=== PATIENT | male | born 1950 | race Caucasian/White ===

== ENCOUNTER 2020-09-04 15:22 | Outpatient (REF) | payer SELFPAY | END 2020-09-04 15:23 | disposition home or self-care (01) | LOC: HO.HAP 15:22 | PROVIDERS: Visit Provider Internal Medicine | DX: Z46.1 Encounter for fitting and adjustment of hearing aid (principal) | CPT/HCPCS: 92700; V5266 ==

== ENCOUNTER 2020-11-21 06:02 | Outpatient (REF) | payer BC, SELFPAY | END 2020-11-21 06:03 | disposition home or self-care (01) | LOC: HO.LAB 06:02 | PROVIDERS: Visit Provider Internal Medicine | DX: R97.20 Elevated prostate specific antigen [PSA] (principal) | CPT/HCPCS: 36415; 84153 ==

== ENCOUNTER 2020-12-07 13:45 | Outpatient (REF) | payer SELFPAY ==
--- NOTE | 2020-12-07 14:22 | MHC.AU.P13 ---
Hearing Instrument Follow-Up- Binaural Date of Visit: 12/07/20 Right Ear: Mission Worker: [employer]ak Model: ActionPlanner Q50-M13 Serial Number: [id number] Repair Warranty: 2017 Loss and Damage Warranty: 2017 Battery Size: 13 Color: SILVER CHRISTENSEN Tubing: #2 SLIM TUBE Type of Dome: SMALL POWER Left Ear: Mission Worker: Phonak Model: ActionPlanner Q50-M13 Serial Number: [id number] RepairWarranty: 2017 Loss and Damage Warranty: 2017 Battery Size: 13 Color: SILVER CHRISTENSEN Tubing: #2 SLIM TUBE Type of Dome: MEDIUM POWER Follow-Up Summary: Right hearing aid dropped off not working. Cleaned and replaced #2 right slim tube, small power dome, and microphone cover - now amplifying clearly. Signature: Provider: NOHEMI Castro-
== END 2020-12-07 13:46 | disposition home or self-care (01) ==
LOC: HO.HAP 13:45
PROVIDERS: Visit Provider Internal Medicine
DX: Z13.89 Encounter for screening for other disorder (principal)

== ENCOUNTER 2020-12-12 15:25 | Outpatient (REF) | payer SELFPAY | END 2020-12-12 15:26 | disposition home or self-care (01) | LOC: HO.HAP 15:25 | PROVIDERS: Visit Provider Internal Medicine | DX: Z46.1 Encounter for fitting and adjustment of hearing aid (principal) | CPT/HCPCS: 99499 ==

== ENCOUNTER 2021-09-25 06:04 | Outpatient (REF) | payer BC, SELFPAY ==
[2021-09-25 06:11] LABS: MANUAL DIFF FLAG NO
[2021-09-25 07:29] LABS: Basophils Absolute Auto 0.1 X10*3/uL (0.0-0.2); Basophils Percent Auto 1.4 % (0-2); Eosinophils Absolute Auto 0.3 X10*3/uL (0.0-0.4); Eosinophils Percent Auto 6.7 % (0-4); Hematocrit 44.6 % (42.0-52.0); Hemoglobin 14.8 g/dl (14.0-18.0); Lymphocytes Absolute Auto 1.6 X10*3/uL (1.2-4.9); Lymphocytes Percent Auto 31.5 % (20-40); Mean Corpuscular HGB Conc 33.2 g/dl (31.0-36.0); Mean Corpuscular Hemoglobin 30.6 pg (27.0-33.0); Mean Corpuscular Volume 92.1 fL (80.0-98.0); Mean Platelet Volume 10.8 fL (9.4-12.4); Monocytes Absolute Auto 0.5 X10*3/uL (0.1-1.2); Monocytes Percent Auto 10.3 % (2-11); Neutrophils Absolute Auto 2.5 x10*3/uL (2.0-8.3); Neutrophils Percent Auto 50.1 % (45-73); Platelet Count 231 X10*3/uL (160-400); Red Blood Count 4.84 X10*6/uL (4.60-5.80)
[2021-09-25 08:35] LABS: Alanine Aminotransferase 21 U/L (0-40); Albumin Level 4.2 g/dL (3.5-5.0); Alkaline Phosphatase 117 U/L (39-117); Anion Gap 13 (12-20); Aspartate Amino Transferase 20 U/L (5-37); Bilirubin Total 1.3 mg/dL (0.0-1.0); Blood Urea Nitrogen 16 mg/dL (9-16); Calcium 9.5 mg/dL (8.4-10.2); Carbon Dioxide 29 mmol/L (22-29); Chloride 105 mmol/L (96-108); Cholesterol 145 mg/dL; Estimated Glomerular Filt Rate > 60; Glucose Fasting 90 mg/dL (60-99); HDL Cholesterol 40 mg/dL; LDL Cholesterol Calculated 90 mg/dl; Potassium 4.6 mmol/L (3.3-5.1); Sodium 142 mmol/L (135-145); Total Protein 7.2 g/dL (6.5-8.0); Triglycerides 75 mg/dL
[2021-09-25 09:05] LABS: Appearance Urine HAZY; Color Urine YELLOW; Glucose Urine UA NEG (NEG); Leukocyte Esterase Urine TRACE (NEG); Nitrite Urine POS (NEG); Specific Gravity - Urine 1.025 (1.005-1.025); Urine Blood TRACE (NEG); Urine Ketones 5 MG/DL (NEG); Urine Protein NEG (NEG-TRACE)
[2021-09-25 09:17] LABS: Bacteria Urine 4+ /LPF; RBC Urine 0-2 /HPF (0); Squamous Epithelial Cell Urine 1+ /LPF
== END 2021-09-25 06:05 | disposition home or self-care (01) ==
LOC: HO.LAB 06:04
PROVIDERS: PCP Internal Medicine; Visit Provider Internal Medicine
DX: Z00.00 Encounter for general adult medical examination without abnormal findings (principal); Z12.5 Encounter for screening for malignant neoplasm of prostate; R79.9 Abnormal finding of blood chemistry, unspecified; N40.0 Benign prostatic hyperplasia without lower urinary tract symptoms
CPT/HCPCS: 36415; 80053; 80061; 81001; 81003; 84153; 85025

== ENCOUNTER 2022-01-04 14:04 | Outpatient (REF) | payer SELFPAY | END 2022-01-04 14:05 | disposition home or self-care (01) | LOC: HO.HAP 14:04 | PROVIDERS: Visit Provider Internal Medicine | DX: Z46.1 Encounter for fitting and adjustment of hearing aid (principal); H90.3 Sensorineural hearing loss, bilateral | CPT/HCPCS: 99499 ==

== ENCOUNTER → 2022-05-06 13:21 | Outpatient (BNVA) | payer SELFPAY | PROVIDERS: PCP Internal Medicine; Visit Provider Internal Medicine | DX: Z02.79 Encounter for issue of other medical certificate (principal) ==

== ENCOUNTER 2022-05-21 10:22 | Outpatient (REF) | payer SELFPAY | END 2022-05-21 10:23 | disposition home or self-care (01) | LOC: HO.HAP 10:22 | PROVIDERS: Visit Provider Internal Medicine | DX: Z46.1 Encounter for fitting and adjustment of hearing aid (principal); H90.3 Sensorineural hearing loss, bilateral | CPT/HCPCS: V5267 ==

== ENCOUNTER 2022-10-01 11:08 | Outpatient (REF) | payer MEDICARE, SELFPAY ==
[2022-10-01 11:15] LABS: MANUAL DIFF FLAG NO
[2022-10-01 11:18] LABS: Basophils Percent Auto 0.7 % (0-2); Eosinophils Absolute Auto 0.2 X10*3/uL (0.0-0.4); Eosinophils Percent Auto 2.8 % (0-4); Hematocrit 45.6 % (42.0-52.0); Hemoglobin 15.3 g/dl (14.0-18.0); Imm Gran Abs Auto 0.02 X10*3/uL (0.00-0.03); Imm Gran Pct Auto 0.4 % (0.0-0.4); Lymphocytes Absolute Auto 1.9 X10*3/uL (1.2-4.9); Lymphocytes Percent Auto 33.7 % (20-40); Mean Corpuscular HGB Conc 33.6 g/dl (31.0-36.0); Mean Corpuscular Hemoglobin 30.3 pg (27.0-33.0); Mean Corpuscular Volume 90.3 fL (80.0-98.0); Mean Platelet Volume 10.1 fL (9.4-12.4); Monocytes Absolute Auto 0.4 X10*3/uL (0.1-1.2); Monocytes Percent Auto 7.1 % (2-11); Neutrophils Absolute Auto 3.1 x10*3/uL (2.0-8.3); Neutrophils Percent Auto 55.3 % (45-73); Platelet Count 264 X10*3/uL (160-400); Red Blood Count 5.05 X10*6/uL (4.60-5.80); White Blood Count 5.6 X10*3/uL (4.8-10.8)
[2022-10-01 11:31] LABS: Alanine Aminotransferase 19 U/L (0-40); Albumin Level 4.4 g/dL (3.5-5.0); Alkaline Phosphatase 74 U/L (39-117); Anion Gap 14 (12-20); Aspartate Amino Transferase 19 U/L (5-37); Bilirubin Total 0.6 mg/dL (0.0-1.0); Blood Urea Nitrogen 15 mg/dL (9-16); Calcium 9.2 mg/dL (8.4-10.2); Carbon Dioxide 26 mmol/L (22-29); Chloride 105 mmol/L (96-108); Cholesterol 319 mg/dL; Estimated Glomerular Filt Rate > 60; Glucose Fasting 94 mg/dL (60-99); HDL Cholesterol 69 mg/dL; LDL Cholesterol Calculated 229 mg/dl; Potassium 4.1 mmol/L (3.3-5.1); Sodium 141 mmol/L (135-145); Total Protein 6.6 g/dL (6.5-8.0); Triglycerides 105 mg/dL
[2022-10-01 12:03] LABS: Appearance Urine Hazy; Color Urine Yellow; Glucose Urine UA Negative (Negative); Leukocyte Esterase Urine Moderate (2+) (Negative); Nitrite Urine Positive (Negative); UMIC TRIGGER UA YES; Urine Blood Trace (Negative); Urine Ketones Negative (Negative); Urine Protein Trace mg/dL (Neg-Trace)
[2022-10-01 14:19] LABS: Bacteria Urine 4+ (None Seen); RBC Urine 0-2 /HPF (0-2); Squamous Epithelial Cell Urine 0-2 /HPF (0-2)
[2022-10-01 14:20] LABS: Hyaline Casts Urine 0-2 /LPF (0-2)
== END 2022-10-01 11:09 | disposition home or self-care (01) ==
LOC: HO.LNP 11:08
PROVIDERS: Visit Provider Internal Medicine
DX: Z00.00 Encounter for general adult medical examination without abnormal findings (principal); R79.9 Abnormal finding of blood chemistry, unspecified; N40.0 Benign prostatic hyperplasia without lower urinary tract symptoms; Z12.5 Encounter for screening for malignant neoplasm of prostate
CPT/HCPCS: 80053; 80061; 81001; 84153; 85025

== ENCOUNTER 2022-10-28 10:44 | Outpatient (REF) | payer MEDICARE, SELFPAY ==
[2022-10-28 11:40] LABS: Cholesterol 193 mg/dL; HDL Cholesterol 47 mg/dL; LDL Cholesterol Calculated 129 mg/dl; Triglycerides 86 mg/dL
[2022-10-28 14:11] LABS: Reflex LDLD? No
== END 2022-10-28 10:45 | disposition home or self-care (01) ==
LOC: HO.LNP 10:44
PROVIDERS: Visit Provider Internal Medicine
DX: E78.00 Pure hypercholesterolemia, unspecified (principal)
CPT/HCPCS: 80061

== ENCOUNTER 2022-11-15 10:30 | Outpatient (REF) | payer MEDICARE, SELFPAY ==
[2022-11-15 10:56] LABS: Blood Urea Nitrogen 20 mg/dL (9-16); Estimated Glomerular Filt Rate > 60
== END 2022-11-15 10:31 | disposition home or self-care (01) ==
LOC: HO.LNP 10:30
PROVIDERS: PCP Internal Medicine; Visit Provider Internal Medicine
DX: Z01.812 Encounter for preprocedural laboratory examination (principal)
CPT/HCPCS: 82565; 84520

== ENCOUNTER 2022-11-19 16:00 | Outpatient (REF) | payer SELFPAY ==
--- NOTE | 2022-11-19 16:53 | MHC.AU.HFU ---
Hearing Instrument Follow-Up- Binaural Date of Visit: 11/19/2022 Right Ear: Phonak Bolero Q50-M13, [id number], silver veloz Repair Warranty: 09/22/2017 Loss and Damage Warranty: 09/22/2017 Battery Size: 13 Tubing: #2 SLIM TUBE Type of Dome: SMALL POWER Dispensed By: [facility] Date of Fittin06/29/2013 Left Ear: Phonak Bolero Q50-M13, [id number], silver veloz Repair Warranty: 09/22/2017 Loss and Damage Warranty: 09/22/2017 Battery Size: 13 Tubing: #2 SLIM TUBE Type of Dome: MEDIUM POWER Dispensed By: [facility] Date of Fittin06/29/2013 Follow-Up Summary: The patient is here reporting his right hearing aid has been intermittent for the past month. He has tried changing the slim tube, dome and battery and using his dry aid jar (which he uses every night). He states the sound randomly gets very weak then comes back to normal. Visual inspection of the right hearing aid was unremarkable. Listening check in office revealed good sound. I was unable to replicate or observe the weak sound in office. I called [employer] and unfortunately, they are no longer able to repair this device. Mr. Velasco says he needs to re-activate the desiccant beads in his dry aid jar - so we reviewed how to do this. He will try this over the next few weeks. I explained that if the intermittency persists, he will need to consider new hearing aids. Quoted pricing for level 3 hearing aids (Phonak level 50). Explained we need an updated hearing test and with an order from his PCP. He will request this when he is able to. No other questions or concerns reported at this time. Diagnosis Code(s): Primary Diagnosis: H90.3 Bilateral Sensorineural Hearing Loss Signature: Provider: Giancarlo Griffin, [facility]
== END 2022-11-19 16:01 | disposition home or self-care (01) ==
LOC: HO.HAP 16:00
PROVIDERS: Visit Provider Internal Medicine
DX: Z13.89 Encounter for screening for other disorder (principal)

== ENCOUNTER 2022-12-05 09:37 | Outpatient (REF) | payer MEDICARE, SELFPAY ==
--- NOTE | ~2022-12-05 | CT_ITS ---
EXAMINATION: CT CHEST WITH CONTRAST CLINICAL INFORMATION: Lung nodule COMPARISON: None TECHNIQUE: Multidetector volumetric CT imaging of the chest was obtained after the administration of 50 mL of Omnipaque 300 intravenous contrast without immediate adverse reactions. Axial MIP volume rendering provided. Sagittal and coronal reformatted images were obtained. This CT examination was performed using dose optimization techniques as appropriate, variously including the following: *Automated exposure control *Adjustment of mA and/or kV according to patient size (this includes techniques or standardized protocols for targeted exams where dose is matched to indication/reason for exam; i.e. extremities or head) *Use of iterative reconstruction technique DLP: 141 FINDINGS: LUNGS: There is 1.1 cm nodular opacity in the left upper lobe (8:38) which may reflect additional scarring versus a nodule. Right upper lobe calcified 3 mm granuloma. Central airways are patent. There is mild predominantly paraseptal emphysema seen in the lung apices. MEDIASTINUM: No mediastinal adenopathy. No hilar adenopathy. PLEURA: Biapical pleural parenchymal scarring. AXILLA: No lymphadenopathy. UPPER ABDOMEN: Small hiatal hernia. Cholelithiasis. Punctate calcification in the right hepatic lobe. Subcentimeter hypoattenuating hepatic lesion is too small to characterize. OSSEOUS STRUCTURES/SOFT TISSUES: Mild degenerative changes of the thoracic spine. CT/CT chest w IV con IMPRESSION: 1.1 cm nodular opacity in the left upper lobe may reflect additional scarring versus a nodule. According to the UPDATED 2017 Fleischner Society recommendations, the advised followup imaging for a single solid nodule measuring 8 mm or greater is: Consider CT, PET/CT, or tissue sampling at 3 months.
[2022-12-05] MEDS: iohexoL 350 MG/ML 100 ML INFUS..BTL 65 ML IV (10:25)
== END 2022-12-05 09:38 | disposition home or self-care (01) ==
LOC: HO.CT 09:37
PROVIDERS: PCP Internal Medicine; Visit Provider Internal Medicine
DX: R91.1 Solitary pulmonary nodule (principal)
CPT/HCPCS: 71260; Q9967

== ENCOUNTER 2022-12-19 13:01 | Outpatient (REF) | payer SELFPAY ==
--- NOTE | 2022-12-19 14:28 | MHC.AU.HA3 ---
Hearing Instrument Follow-Up- Binaural Date of Visit: 12/19/22 Right Ear: Make, Model, Color, Serial Number: Rosalinda Burk Q50-M13 SN: [id number] Color: Silver Alvarez Radial Arm Saw Operator Repair Warranty: 09/22/2017 Radial Arm Saw Operator Loss and Damage Warranty: 09/22/2017 Battery Size: 13 Wireless Sales Consultant/Slim Tube: #2 slim tube Earmold/Dome/CShell/SlimTip:Small power dome Dispensed By: [facility] Date of Fittin06/29/2013 Left Ear: Make, Model, Color, Serial Number: Rosalinda Burk Q50-M13 SN: [id number] Color: Silver Alvarez Radial Arm Saw Operator Repair Warranty: 09/22/2017 Radial Arm Saw Operator Loss and Damage Warranty: 09/22/2017 Battery Size: 13 Wireless Sales Consultant/Slim Tube: #2 slim tube Earmold/Dome/CShell/SlimTip: Medium power dome Dispensed By: [facility] Date of Fittin06/29/2013 Follow-Up Summary: Negro reported that he is having intermittency issues with his right hearing aid again; however, today it has been reportedly working fine. He was previously seen on 11/19/22 with the same concern. He was advised at that time that Rosalinda no longer repairs his make/model of hearing aid and if the intermittency persists, he would have to consider new hearing aids. Negro reported today that the hearing aid will cut out at random times and then come back. A listening check demonstrated that the hearing aid is amplifying clearly and could not replicate intermittent issues in office. Otoscopy clear. Discussed new hearing aids again and pricing structure. Recommendations: Consider trial with new hearing aids due to age of current pair. Negro will contact his PCP for order for updated hearing test. He also will inquire about a hearing aid benefit through his [facility] insurance - advised possible TPA benefit. Diagnosis Code(s): Primary Diagnosis: H90.3 Bilateral Sensorineural Hearing Loss Signature: Provider: Slade Mckeon, [facility]
== END 2022-12-19 13:02 | disposition home or self-care (01) ==
LOC: HO.HAP 13:01
PROVIDERS: Visit Provider Internal Medicine
DX: Z13.89 Encounter for screening for other disorder (principal)

== ENCOUNTER 2023-01-08 08:26 | Outpatient (REF) | payer MEDICARE, SELFPAY | END 2023-01-08 08:27 | disposition home or self-care (01) | LOC: HO.SH 08:26 | PROVIDERS: Visit Provider Internal Medicine | DX: Z01.118 Encounter for examination of ears and hearing with other abnormal findings (principal); H90.3 Sensorineural hearing loss, bilateral | CPT/HCPCS: 92557 ==

== ENCOUNTER 2023-10-14 10:24 | Outpatient (REF) | payer SELFPAY ==
[2023-10-14 10:57] LABS: MANUAL DIFF FLAG NO
[2023-10-14 11:17] LABS: Appearance Urine Clear; Color Urine Yellow; Glucose Urine UA Negative (Negative); Leukocyte Esterase Urine Trace (Negative); Nitrite Urine Positive (Negative); Specific Gravity - Urine 1.015 (1.005-1.025); UMIC TRIGGER UACC YES; Urine Blood Trace (Negative); Urine Ketones Negative (Negative); Urine Protein Negative (Neg-Trace)
[2023-10-14 11:27] LABS: Bacteria Urine 4+ (None Seen); Hyaline Casts Urine 0-2 /LPF (0-2); Squamous Epithelial Cell Urine 0-2 /HPF (0-2); UACC Culture Trigger YES
[2023-10-14 11:51] LABS: Basophils Absolute Auto 0.1 X10*3/uL (0.0-0.2); Basophils Percent Auto 1.5 % (0-2); Eosinophils Absolute Auto 0.3 X10*3/uL (0.0-0.4); Eosinophils Percent Auto 5.6 % (0-4); Hematocrit 42.8 % (42.0-52.0); Hemoglobin 14.6 g/dl (14.0-18.0); Imm Gran Abs Auto 0.02 X10*3/uL (0.00-0.03); Imm Gran Pct Auto 0.4 % (0.0-0.4); Lymphocytes Percent Auto 36.6 % (20-40); Mean Corpuscular HGB Conc 34.1 g/dl (31.0-36.0); Mean Corpuscular Hemoglobin 31.4 pg (27.0-33.0); Mean Platelet Volume 10.9 fL (9.4-12.4); Monocytes Absolute Auto 0.6 X10*3/uL (0.1-1.2); Monocytes Percent Auto 10.6 % (2-11); Neutrophils Absolute Auto 2.5 x10*3/uL (2.0-8.3); Neutrophils Percent Auto 45.3 % (45-73); Platelet Count 217 X10*3/uL (160-400); Red Blood Count 4.65 X10*6/uL (4.60-5.80); Red Cell Distribution Width 12.7 % (11.0-16.0); White Blood Count 5.5 X10*3/uL (4.8-10.8)
[2023-10-14 12:08] LABS: Cholesterol 168 mg/dL (<200); HDL Cholesterol 50 mg/dL (>40); LDL Cholesterol Calculated 106 mg/dL (<100); Triglycerides 60 mg/dL (<150)
[2023-10-14 12:29] LABS: Prostate Specific Antigen 4.31 ng/mL (<0.05-4.0)
== END 2023-10-14 10:25 | disposition home or self-care (01) ==
LOC: HO.LNP 10:24
PROVIDERS: Visit Provider Internal Medicine
DX: Z00.00 Encounter for general adult medical examination without abnormal findings (principal); Z12.5 Encounter for screening for malignant neoplasm of prostate; R79.9 Abnormal finding of blood chemistry, unspecified; N40.0 Benign prostatic hyperplasia without lower urinary tract symptoms; E78.00 Pure hypercholesterolemia, unspecified
CPT/HCPCS: 80061; 81001; 84153; 85025; 87086

== ENCOUNTER 2023-12-01 09:59 | Outpatient (AMB) | payer MEDICARE, SELFPAY ==
--- NOTE | 2023-12-01 10:08 | A.OFFVIS_ITS ---
Intake Intake Visit Reasons: Elevated PSA Intake Note: New Patient is Present for Elevated psa/Micro Hematuria/prostatism Urology Medication: Tamsulosin, Tadalafil ( Prescribed by PCP) Antibiotic Allergies: None Blood Thinners: None Patient states he does not see any blood in his urine only when urine is tested. Denies any urination issues Allergies No Known Allergies Allergy (Verified 12/01/23 10:48) Medication List - Last Reconciled 12/01/23 by KIRT Rojas ibuprofen 800 mg PO TID PRN terazosin 5 mg PO BEDTIME 30 days HPI HPI Comments History of Present Illness Details Negro Mason is a very pleasant 72-year-old male patient of Dr. Sandoval who was accompanied by significant other at today's office visit. He has a past medical history of prostatism, hypercholesteremia, microscopic hematuria, and elevated PSA. He presents to the office today as a new patient for an elevated PSA. In discussion with the patient today reports having followed up with his PCP for his annual visit at which time his PSA was noted be elevated at which time recommendations were made for urology referral for further assessment evaluation. PSAs are as follows: 12/07--3.4 10/09--4.3 When asked he does report urinary frequency and nocturia. He otherwise denies incontinence, hematuria, dysuria, foul smelling urine, changes to urinary stream, flank pain, fever, and or chills. He reports having started Flomax approximately a year and half ago and has not noted any benefit in lower urinary tract symptoms. When asked he does report a family history of prostate cancer. He reports his father had prostate cancer and underwent prostatectomy. ADRIAN offered however patient reports having had ADRIAN with PCP noting enlarged prostate. Discussed at length potential causes for elevated PSA. In office urinalysis results reviewed with the patient today. 3+ leukocytes positive nitrates and microscopic hematuria. Discussed obtaining urine culture for further assessment evaluation as well as PSA and retroperitoneal ultrasound. He otherwise denies any other issues or concerns at this time. [facility] Medical History (Updated 12/01/23 @ 10:47 by KIRT Rojas) Prostatism Encounter for screening for depression Colon cancer screening Pure hypercholesterolemia, unspecified Pain in left shoulder Prostatism Microscopic hematuria Increased prostate specific antigen (PSA) velocity Adenoma Encounter for general adult medical examination without abnormal findings Review of Systems Eyes Reports no additional complaints ENT Details: Hearing impaired Card Reports as per HPI Resp Reports no additional complaints GI Reports no additional complaints Reports as per HPI Musc Reports no additional complaints Neuro Reports no additional complaints Psych Reports no additional complaints Endo Reports no additional complaints Neal/Lymph Reports no additional complaints Aller/Immun Reports no additional complaints Physical Exam Const General: cooperative, healthy appearing, comfortable, no acute distress, well developed, alert and awake Nutritional Appearance: thin Orientation/consciousness: patient oriented x3 Limitations: no limitations HEENT Head: Yes normal to inspection, Yes normocephalic and Yes atraumatic Ears: hearing grossly normal bilaterally Eyes General: appearance normal, both eyes and all related structures Neck Neck: Yes normal visual inspection and Yes trachea midline Chest Chest palpation & inspection: normal inspection of the chest Resp Effort & Inspection: normal respiratory effort and able to speak in complete sentences Cardio Rate: regular rate GI Inspection: Yes normal to inspection General: Yes no CVA tenderness Back/Spine/Pelvis Back: no CVA tenderness Skin General skin exam: no rashes or lesions noted Neuro General: patient oriented x3 Extrem General: Yes normal to inspection Psych Appearance: grossly normal and well kempt Mental Status: mental status grossly normal Speech and movement: Normal speech and movement present and Clear speech present Affect: normal affect Attitude: cooperative Thought process: Normal thought process present Thought content: Normal thought content present Insight: Fair insight present (Psych) Judgement: Fair judgement present (Psych) Office Procedures Post Void Residual Post Residual Void Post Void Residual (PVR): 0 [id number] Void Residual by ultrasound Results AMB Urinalysis, Automated UA Leukoctes 500 Jany/uL Last Edit by DAISY Madrid on 12/01/23 10:31 UA Nitrite Positive Last Edit by Jenn Reyna John on 12/01/23 10:31 UA Urobilinogen 0.2 mg/dL Last Edit by DAISY Madrid on 12/01/23 10:3 1 UA Protein 30 mg/dL Last Edit by Jenn Reyna John on 12/01/23 10:31 UA pH 6.0 Last Edit by Jenn Reyna John on 12/01/23 10:31 UA Blood 25 Gino/uL Last Edit by Jenn Reyna John on 12/01/23 10:31 UA Specific [place] 1.025 Last Edit by DAISY Madrid on 12/01/23 10: 31 UA Ketone Negative Last Edit by DAISY Madrid on 12/01/23 10:31 UA Bilirubin 0 mg/dL Last Edit by ROLANDO MadridA on 12/01/23 10:31 UA Glucose 0 mg/dL Last Edit by DAISY Madrid on 12/01/23 10:31 Results Reviewed Results Reviewed: Laboratory Last Values Urine pH (Auto) 6.0 12/01/23 10:21 Specific [place] (Auto) 1.025 12/01/23 10:21 Urine Protein (Auto) 30 mg/dL 12/01/23 10:21 Glucose (UA)(Auto) 0 mg/dL 12/01/23 10:21 Urine Ketones (Auto) Negative 12/01/23 10:21 Urine Blood (Auto) 25 Gino/uL 12/01/23 10:21 Urine Nitrite (Auto) Positive 12/01/23 10:21 Urine Bilirubin (Auto) 0 mg/dL 12/01/23 10:21 Urine Urobilinogen (Auto) 0.2 mg/dL 12/01/23 10:21 Leukocyte Esterase (Auto) 500 Jany/uL 12/01/23 10:21 Assessment & Plan Assessment & Plan (1) UTI (urinary tract infection): Code(s): N39.0 - Urinary tract infection, site not specified (2) Lower urinary tract symptoms: Code(s): R39.9 - Unspecified symptoms and signs involving the genitourinary system (3) Nocturia: Code(s): R35.1 - Nocturia Plan In office urinalysis results reviewed with the patient today; as noted above; will send for urine culture and urine cytology; will await results for treatment if necessary PVR 0 mL Will obtain retroperitoneal ultrasound for further assessment evaluation. Will obtain redraw of PSA with specific instructions of no sex the night before, no caffeine morning of, and no heavy lifting 1-2 days prior to lab draw. Stop Flomax as discussed. Start terazosin 5 mg at bedtime. Discussed at length potential causes for elevated PSA Follow-up in 1-2 months with imaging and labs to be completed prior; or sooner with any issues, concerns, and or questions. Orders: Orders Urine Culture Today N39.0 - Urinary tract infection, site not specified US retroperitoneal comp Today R35.1 - Nocturia, R39.9 - Unspecified symptoms and signs involving the genitourinary system PSA,Total (Free>4and<10) Today R97.20 - Elevated prostate specific antigen [PSA] AMB Urinalysis Automated Today Z13.9 - Encounter for screening, unspecified AMB Post Void Residual by ultrasound Today N40.0 - Benign prostatic hyperplasia without lower urinary tract symptoms Urine Cytology Today R31.29 - Other microscopic hematuria Medications: New terazosin 5 mg PO BEDTIME 30 caps 1RF 30 days N40.1 - Benign prostatic hyperplasia with lower urinary tract symptoms, R35.0 - Frequency of micturition Patient Instructions: The patient had an opportunity to ask questions regarding the treatment plan. All questions were answered. Physical exam, labs, and imaging were discussed and reviewed in detail. As well as risks, benefits, and discussion of treatment choices. No major barriers to understanding were identified. The patient expressed understanding and agreement with the above treatment plan. The patient was made aware they should contact our office by phone for worsening of their current condition, the appearance of new symptoms, or with any questions or concerns. Compliance is encouraged with any medications and follow up testing that is ordered. It is a privilege to be allowed the opportunity to participate in? your urological care.? Again, if you have any questions or concerns If you have any questions or concerns please do not hesitate to contact me. The office is [phone]. This note is constructed using voice recognition software. While every effort watson s been made to ensure accuracy family and consumer education teacher errors may have been included. Yours sincerely, KIRT Rojas Coding Level of Care Code New Pt Level 4 (14672) Diagnoses UTI (urinary tract infection) N39.0 Lower urinary tract symptoms R39.9 Nocturia R35.1 CPT Codes Post Residual Void - PVR CPT Code: 58748-Aonq Void Residual by ultrasound ([id number])
== END 2023-12-01 10:50 | disposition home or self-care (01) ==
PROVIDERS: PCP Internal Medicine; Visit Provider Nurse Practitioner Family
DX: N39.0 Urinary tract infection, site not specified (principal); R39.9 Unspecified symptoms and signs involving the genitourinary system; R35.1 Nocturia; Z13.9 Encounter for screening, unspecified
CPT/HCPCS: 99204

== ENCOUNTER 2023-12-01 09:59 | Outpatient (REF) | payer MEDICARE, SELFPAY ==
[2023-12-01 16:27] LABS: Urine Cytology See Pathology rpt
== END 2023-12-01 10:00 | disposition home or self-care (01) ==
LOC: HO.LAB 09:59
PROVIDERS: PCP Internal Medicine; Visit Provider Nurse Practitioner Family
DX: N39.0 Urinary tract infection, site not specified (principal); R31.29 Other microscopic hematuria; N40.0 Benign prostatic hyperplasia without lower urinary tract symptoms; R97.20 Elevated prostate specific antigen [PSA]; R39.9 Unspecified symptoms and signs involving the genitourinary system; R35.1 Nocturia
CPT/HCPCS: 51798; 81003; 87086; 88112; 99202

== ENCOUNTER 2023-12-09 10:22 | Outpatient (REF) | payer MEDICARE, SELFPAY ==
--- NOTE | ~2023-12-09 | US_ITS ---
EXAMINATION: US RETROPERITONEAL LIMITED (RENAL ONLY) CLINICAL INFORMATION: Nocturia. COMPARISON: None available. TECHNIQUE: Real-time imaging of the kidneys. Technically limited study secondary to bowel gas. FINDINGS: RIGHT KIDNEY: 10.2 x 5.7 x 5.2 cm (SAG x AP x TRV). The kidney is normal in size, contour, and echogenicity. Renal cortical thickness is normal. No calculi or focal parenchymal lesions. No hydronephrosis. LEFT KIDNEY: 11.8 x 5.9 x 3.9 cm (SAG x AP x TRV). The kidney is normal in size, contour, and echogenicity. Renal cortical thickness is normal. No calculi or focal parenchymal lesions. No hydronephrosis. US/US renal BI IMPRESSION: Unremarkable renal ultrasound.
== END 2023-12-09 10:23 | disposition home or self-care (01) ==
LOC: HO.US 10:22
PROVIDERS: PCP Internal Medicine; Visit Provider Nurse Practitioner Family
DX: R35.1 Nocturia (principal); R39.9 Unspecified symptoms and signs involving the genitourinary system
CPT/HCPCS: 76775

== ENCOUNTER 2023-12-17 13:54 | Outpatient (REF) | payer MEDICARE, SELFPAY ==
--- NOTE | ~2023-12-17 | US_ITS ---
EXAMINATION: US PELVIS LIMITED (BLADDER) CLINICAL INFORMATION: Nocturia. COMPARISON: None available. TECHNIQUE: Real-time imaging of the bladder. FINDINGS: BLADDER: Well distended. Bilateral ureteral jets are demonstrated. Prevoid bladder volume is 186 mL. Postvoid bladder volume is 63.2 mL. Thick-walled trabeculated urinary bladder. Enlarged prostate, volume 37.6 mL. US/US bladder IMPRESSION: 1. Thick-walled trabeculated urinary bladder which can be seen in the setting of bladder outlet obstruction. 2. Small postvoid bladder residual of 63.2 mL. 3. Mild prostatomegaly.
== END 2023-12-17 13:55 | disposition home or self-care (01) ==
LOC: HO.US 13:54
PROVIDERS: PCP Internal Medicine; Visit Provider Nurse Practitioner Family
DX: R35.1 Nocturia (principal); R39.9 Unspecified symptoms and signs involving the genitourinary system
CPT/HCPCS: 76857

== ENCOUNTER 2024-01-08 13:11 | Outpatient (REF) | payer MEDICARE, SELFPAY ==
[2024-01-08 14:46] LABS: PSA,Total (Free>4and<10) 4.86 ng/mL (0.00-4.00)
[2024-01-13 12:48] LABS: Free Prostate Spec Ag 0.4 ng/mL; Percent Free Prostate Spec Ag 10 % (calc) (>25)
== END 2024-01-08 13:12 | disposition home or self-care (01) ==
LOC: HO.LAB 13:11
PROVIDERS: PCP Internal Medicine; Visit Provider Nurse Practitioner Family
DX: R97.20 Elevated prostate specific antigen [PSA] (principal); Z12.5 Encounter for screening for malignant neoplasm of prostate
CPT/HCPCS: 36415; 84153; 84154

== ENCOUNTER 2024-01-15 10:40 | Outpatient (AMB) | payer MEDICARE, SELFPAY ==
--- NOTE | 2024-01-15 11:15 | MHC.OFFVIS ---
Intake Intake Visit Reasons: 6w/US/PSA(set) Intake Note: Patient presents today for follow up Elevated psa/Micro Hematuria/prostatism/Ultrasound Results Imagin12/09/23 & 12/17/23 PSA: 4.86 Urology Medication: Terazosin Antibiotic Allergies: None Blood Thinners: None PVR: 37ml's Diversified Crops Supervisor Required: No Accompanied by: Unknown Allergies No Known Allergies Allergy (Verified 01/18/24 14:30) Medication List - Last Reconciled 01/18/24 by DILIP Rojas- hydroxychloroquine 200 mg PO BID ibuprofen 800 mg PO TID PRN levofloxacin 500 mg PO daily 3 days terazosin 5 mg PO BEDTIME 30 days HPI HPI Comments History of Present Illness Details Negro Mason is a very pleasant 73-year-old male patient of Dr. Sandoval who was accompanied by significant other at today's office visit. He has a past medical history of prostatism, hypercholesteremia, microscopic hematuria, and elevated PSA. He presents to the office today for a follow up. Of note, patient was seen approximately 6 weeks ago as a new patient for an elevated PSA at which time redraw of PSA and retroperitoneal ultrasound was ordered for further assessment evaluation. These results were reviewed with the patient today. Bilateral kidneys with no calculi, lesions, and or hydronephrosis. The bladder is well distended. Bilateral ureteral jets are demonstrated. Pre void bladder volume is approximately 185 mL. Postvoid bladder volume is approximately 60 mL. Thickened wall trabeculated urinary bladder. Prostate volume approximately 38 mL. PSAs are as follows: 12/07--3.4 10/09--4.3 01/10-- 4.9 PSA free 10% Reviewed urine cytology from last office visit 12/10: Negative for high-grade urothelial carcinoma PCPT risk calculator results reviewed with the patient today. 27% chance that prostate biopsy is negative for cancer, 47% chance of low-grade prostate cancer, and 26% chance of high-grade prostate cancer. When asked he does report significant improvement in urinary frequency and nocturia with 5 mg of terazosin. He otherwise denies incontinence, hematuria, dysuria, foul smelling urine, changes to urinary stream, flank pain, fever, and or chills. He had previously trialed Flomax with PCP and noted no benefit. When asked he does report a family history of prostate cancer. He reports his father had prostate cancer and underwent prostatectomy however is unsure at what age. ADRIAN offered however patient reports having had ADRIAN with PCP noting enlarged prostate. Discussed at length potential causes for elevated PSA. In office urinalysis results reviewed with the patient today. 3+ leukocytes positive nitrates and microscopic hematuria. However, this was also noted on last office visit approximately 6 weeks ago and UA was sent for culture and noted mixed bacteria with no growth. Discussed at length further treatment options for elevated PSA with surveillance monitoring, trial of finasteride, MRI of the prostate, and or prostate biopsy. Risks and benefits of these treatment options were discussed at length. He discusses his who has recently been diagnosed with renal cancer and is undergoing treatment through [facility]. He otherwise denies any other issues or concerns at this time. [facility] Medical History Prostatism Encounter for screening for depression Colon cancer screening Pure hypercholesterolemia, unspecified Pain in left shoulder Prostatism Microscopic hematuria Increased prostate specific antigen (PSA) velocity Adenoma Encounter for general adult medical examination without abnormal findings Review of Systems Eyes Reports no additional complaints ENT Details: Hearing impaired Card Reports as per HPI Resp Reports no additional complaints GI Reports no additional complaints Reports as per HPI Musc Reports no additional complaints Neuro Reports no additional complaints Psych Reports no additional complaints Endo Reports no additional complaints Neal/Lymph Reports no additional complaints Aller/Immun Reports no additional complaints Physical Exam Const General: cooperative, healthy appearing, comfortable, no acute distress, well developed, alert and awake Nutritional Appearance: thin Orientation/consciousness: patient oriented x3 Limitations: no limitations HEENT Head: Yes normal to inspection, Yes normocephalic and Yes atraumatic Ears: hearing grossly normal bilaterally Eyes General: appearance normal, both eyes and all related structures Neck Neck: Yes normal visual inspection and Yes trachea midline Chest Chest palpation & inspection: normal inspection of the chest Resp Effort & Inspection: normal respiratory effort and able to speak in complete sentences Cardio Rate: regular rate GI Inspection: Yes normal to inspection General: Yes no CVA tenderness Back/Spine/Pelvis Back: no CVA tenderness Skin General skin exam: no rashes or lesions noted Neuro General: patient oriented x3 Extrem General: Yes normal to inspection Psych Appearance: grossly normal and well kempt Mental Status: mental status grossly normal Speech and movement: Normal speech and movement present and Clear speech present Affect: normal affect Attitude: cooperative Thought process: Normal thought process present Thought content: Normal thought content present Insight: Fair insight present (Psych) Judgement: Fair judgement present (Psych) Office Procedures Post Void Residual Post Residual Void Post Void Residual (PVR): 37 [id number] Void Residual by ultrasound Results AMB Urinalysis, Automated UA Leukoctes 15 Jany/uL Last Edit by Avelino Serna on 01/15/24 11:28 UA Nitrite Positive Last Edit by [facility] Serna on 01/15/24 11:28 UA Urobilinogen 0.2 mg/dL Last Edit by [email or web address] on 01/15/24 11:28 UA Protein 15 mg/dL Last Edit by [facility] Preventicelloyd on 01/15/24 11:28 UA pH 6.0 Last Edit by [facility] [employer] on 01/15/24 11:28 UA Blood 10 Gino/uL Last Edit by [email or web address] on 01/15/24 11:28 UA Specific D Lo 1.020 Last Edit by [facility] [employer] on 01/15/24 11:28 UA Ketone Negative Last Edit by [email or web address] on 01/15/24 11:28 UA Bilirubin 0 mg/dL Last Edit by [facility] [employer] on 01/15/24 11:28 UA Glucose 0 mg/dL Last Edit by [facility] [employer] on 01/15/24 11:28 Results Reviewed Results Reviewed: Laboratory Last Values Urine pH (Auto) 6.0 01/15/24 11:17 Specific D Lo (Auto) 1.020 01/15/24 11:17 Urine Protein (Auto) 15 mg/dL 01/15/24 11:17 Glucose (UA)(Auto) 0 mg/dL 01/15/24 11:17 Urine Ketones (Auto) Negative 01/15/24 11:17 Urine Blood (Auto) 10 Gino/uL 01/15/24 11:17 Urine Nitrite (Auto) Positive 01/15/24 11:17 Urine Bilirubin (Auto) 0 mg/dL 01/15/24 11:17 Urine Urobilinogen (Auto) 0.2 mg/dL 01/15/24 11:17 Leukocyte Esterase (Auto) 15 Jany/uL 01/15/24 11:17 Date of Service: 12/09/23 EXAMINATION: US RETROPERITONEAL LIMITED (RENAL ONLY) FINDINGS: RIGHT KIDNEY: 10.2 x 5.7 x 5.2 cm (SAG x AP x TRV). The kidney is normal in size, contour, and echogenicity. Renal cortical thickness is normal. No calculi or focal parenchymal lesions. No hydronephrosis. LEFT KIDNEY: 11.8 x 5.9 x 3.9 cm (SAG x AP x TRV). The kidney is normal in size, contour, and echogenicity. Renal cortical thickness is normal. No calculi or focal parenchymal lesions. No hydronephrosis. IMPRESSION: Unremarkable renal ultrasound. Date of Service: 12/17/23 EXAMINATION: US PELVIS LIMITED (BLADDER) FINDINGS: BLADDER: Well distended. Bilateral ureteral jets are demonstrated. Prevoid bladder volume is 186 mL. Postvoid bladder volume is 63.2 mL. Thick-walled trabeculated urinary bladder. Enlarged prostate, volume 37.6 mL. IMPRESSION: 1. Thick-walled trabeculated urinary bladder which can be seen in the setting of bladder outlet obstruction. 2. Small postvoid bladder residual of 63.2 mL. 3. Mild prostatomegaly. Assessment & Plan Assessment & Plan (1) Elevated PSA: Code(s): R97.20 - Elevated prostate specific antigen [PSA] (2) Bladder wall thickening: Code(s): N32.89 - Other specified disorders of bladder (3) Bladder trabeculation: Code(s): N32.89 - Other specified disorders of bladder (4) Family history of prostate cancer: Code(s): Z80.42 - Family history of malignant neoplasm of prostate Plan: Plan Risks and benefits regarding trans rectal ultrasound with prostate biopsy were discussed.? Options of continued surveillance, no treatment and biopsy were offered. The risks include but are not limited to, urinary tract infection, sepsis, difficulty urinating, bleeding into the rectum or bladder that requires intervention and transfusion,and failure to diagnose prostate cancer. The patient understands the options and the risks involved. They wish to proceed. Printed information was provided to ensure he remains off anticoagulation for the appropriate length of time. He may require cardiology or PCP clearance.? An antibiotic will be administered prior to, and following the procedure Plan In office urinalysis results reviewed with the patient today; will send for urine culture. PVR 37 mL. Recent retroperitoneal ultrasound results reviewed with the patient and his today. Recent PSA results reviewed with the patient today; as noted above. Urine cytology reviewed with the patient today; as noted above. Discussed at length potential causes of elevated PSA. Discussed further treatment options with surveillance monitoring, trial finasteride, prostate MRI, and or prostate biopsy; risks and benefits of these interventions were discussed at length. PCPT risk calculator results reviewed with the patient today; as noted above Continue terazosin as discussed and prescribed. Will schedule for prostate biopsy as discussed Discussed antibiotic therapy day before, day of, and day after procedure; prescription provided Follow-up status post prostate biopsy per Dr. Couch's order; or sooner with any issues, concerns, and or questions. Orders: Orders AMB Urinalysis Automated 01/15/24 Z13.9 - Encounter for screening, unspecified AMB Post Void Residual by ultrasound 01/15/24 R35.1 - Nocturia Urine Culture 01/15/24 R39.9 - Unspecified symptoms and signs involving the genitourinary system Medications: New levofloxacin take 1 tablet day before procedure, 1 tablet day of procedure and 1 tablet day after procedure 500 mg PO daily 3 days 3 tabs 0RF Patient Instructions: The patient had an opportunity to ask questions regarding the treatment plan. All questions were answered. Physical exam, labs, and imaging were discussed and reviewed in detail. As well as risks, benefits, and discussion of treatment choices. No major barriers to understanding were identified. The patient expressed understanding and agreement with the above treatment plan. The patient was made aware they should contact our office by phone for worsening of their current condition, the appearance of new symptoms, or with any questions or concerns. Compliance is encouraged with any medications and follow up testing that is ordered. It is a privilege to be allowed the opportunity to participate in? your urological care.? Again, if you have any questions or concerns If you have any questions or concerns please do not hesitate to contact me. The office is [phone]. This note is constructed using voice recognition software. While every effort has been made to ensure accuracy director toxicology errors may have been included. Yours sincerely, DILIP Rojas-BC Coding Level of Care Code Est Pt Level 4 (96301) Diagnoses Elevated PSA R97.20 Bladder wall thickening N32.89 Bladder trabeculation N32.89 Family history of prostate cancer Z80.42 CPT Codes Post Residual Void - PVR CPT Code: 13302-Fnkm Void Residual by ultrasound ([id number])
== END 2024-01-15 11:40 | disposition home or self-care (01) ==
PROVIDERS: PCP Internal Medicine; Visit Provider Nurse Practitioner Family
DX: R97.20 Elevated prostate specific antigen [PSA] (principal); N32.89 Other specified disorders of bladder; Z80.42 Family history of malignant neoplasm of prostate
CPT/HCPCS: 99214

== ENCOUNTER 2024-01-15 10:40 | Outpatient (REF) | payer MEDICARE, SELFPAY | END 2024-01-15 10:41 | disposition home or self-care (01) | LOC: HO.LNP 10:40 | PROVIDERS: PCP Internal Medicine; Visit Provider Nurse Practitioner Family | DX: R97.20 Elevated prostate specific antigen [PSA] (principal); R31.29 Other microscopic hematuria; N40.0 Benign prostatic hyperplasia without lower urinary tract symptoms; N32.89 Other specified disorders of bladder; R35.1 Nocturia; R39.9 Unspecified symptoms and signs involving the genitourinary system; Z80.42 Family history of malignant neoplasm of prostate; Z79.899 Other long term (current) drug therapy | CPT/HCPCS: 51798; 81003; 87086; 99212 ==

== ENCOUNTER 2024-03-16 10:53 | Day surgery (SDC) | payer MEDICARE, SELFPAY ==
[2024-03-16 11:50] VITALS: BMI 24.1
[2024-03-16 12:29] VITALS: BP 120/78; PULSE 73; RESP 16; TEMP 36.8; O2SAT 96
--- NOTE | 2024-03-16 12:29 | MHC.SHP ---
Pre-Procedural Eval Section A - 24 Hr Update-Section A only Date of Service: 03/16/24 The patient is an INPATIENT: No The patient has been examined within 24 hours of the surgical procedure. The History & Physical has been completed within 30 days and I have reviewed it.: Yes Section B - Complete if H&P > 30 days Chief Complaint: Elevated prostate specific antigen [PSA] Allergies: Allergies Allergy/AdvReac Type Severity Reaction Status Date / Time No Known Allergies Allergy Verified 01/18/24 14:30 Plan Diagnosis/Plan: Unchanged I have reviewed the history and physical and performed a pertinent physical examination on my patient. No changes have occurred unless specified. Transrectal Ultrasound guided biopsy of the prostate. Discussed risks to include but not limited to pain, blood in stool, urine and semen, septicemia, need to repeat biopsy. Time Spent With Patient Time: Total time managing care of this patient today ____ minutes.
[2024-03-16] MEDS: Sulfamethox/Trimeth 800/160 TABLET 1 TAB PO (12:57)
[2024-03-16 13:19] LABS: Appearance Urine Clear; Color Urine Yellow; Glucose Urine UA Negative (Negative); Leukocyte Esterase Urine Negative (Negative); Nitrite Urine Negative (Negative); PH 6.5 (5.0-9.0); Urine Blood Negative (Negative); Urine Ketones Negative (Negative); Urine Protein Negative (Neg-Trace)
[2024-03-16 13:23] VITALS: BP 125/56; PULSE 84; RESP 18; TEMP 36.7; O2SAT 98
[2024-03-16 13:27] LABS: Bacteria Urine None Seen (None Seen); Hyaline Casts Urine 0-2 /LPF (0-2); RBC Urine 0-2 /HPF (0-2); Squamous Epithelial Cell Urine 0-2 /HPF (0-2); WBC Urine 0-5 /HPF (0-5)
--- NOTE | 2024-03-16 13:29 | W.PM.OPN ---
Operative Note Operative Note Date of Service: 03/16/24 Narrative: PreOperative Diagnosis:? ? Elevated PSA Post Operative Diagnosis:??Elevated PSA Procedure:?1. Transrectal ultrasound guided biopsy of the prostate 12 core 2. Transrectal ultrasound measurement of prostate 3. Transrectal ultrasound guided pudendal nerve block Surgeon:?Dr Toni Simpson Anesthesia:? Local Indications for procedure: Elevated PSA, FH, father prostate cancer Procedure: Preoperative antibiotics confirmed. After informed consent was verified the patient was placed on the procedure table in left lateral position. Patient identity confirmed. Safety pause time-out performed. Digital rectal exam performed to dilate rectal sphincter, iodine mixed with lubricant jelly 30 cc placed per rectum. Ultrasound probe was placed per rectum. The prostate was visualized. The prostate was measured width 5.40 cm, height 3.49 cm, length 4.36 cm with a volume of 43.1 mL. An ultrasound guided pudendal nerve block was performed using 7 cc of 1% lidocaine. A 12 core biopsy was performed from the left base, left mid, left apex and right base, mid, apex 2 biopsies from each section. The ultrasound probe was removed and digital palpation of the prostate for 1-2 minutes for hemostasis was performed. The patient tolerated the procedure well. Complications: None
== END 2024-03-16 13:40 | disposition home or self-care (01) ==
PROVIDERS: PCP Internal Medicine; Visit Provider Urology
PROC: (CPT 55700; principal; 2024-03-16 13:20)
DX: C61 Malignant neoplasm of prostate (principal); N40.0 Benign prostatic hyperplasia without lower urinary tract symptoms; R97.20 Elevated prostate specific antigen [PSA]; R35.1 Nocturia; Z80.42 Family history of malignant neoplasm of prostate; R31.29 Other microscopic hematuria; N32.89 Other specified disorders of bladder; Z79.1 Long term (current) use of non-steroidal anti-inflammatories (NSAID); Z79.899 Other long term (current) drug therapy; E78.00 Pure hypercholesterolemia, unspecified
CPT/HCPCS: 55700; 76942; 81001; 87086; 88305; 88344

== ENCOUNTER → 2024-03-16 10:53 | Outpatient (BNV) | payer MEDICARE, SELFPAY | PROVIDERS: PCP Internal Medicine; Visit Provider Urology | DX: R97.20 Elevated prostate specific antigen [PSA] (principal) | CPT/HCPCS: 55700; 76942 ==

== ENCOUNTER 2024-03-29 11:34 | Outpatient (AMB) | payer MEDICARE, SELFPAY ==
--- NOTE | 2024-03-29 12:10 | A.OFFVIS_ITS ---
Intake Visit Reasons: Prostate biopsy results Intake Note: Patient presents today for a Prostate Biopsy Results: Meds- Terazosin Allergies to Antibiotic- No Known Allergies Blood Thinner- None Footwear Sales Leader Required: No Accompanied by: Significant Other Allergies No Known Allergies Allergy (Verified 03/29/24 12:13) HPI Comments Details: 03/29/24--Negro is here with his to discuss prostate biopsy results. He is s/p prostate biopsy on 03/16/24 for elevated PSA. Reviewed results-Histologic type: Adenocarcinoma, acinar type, Histologic grade: [place] score: 3+4=7 (right base lateral, right base medial) 3+3=6 (left base lateral, right mid lateral and medial, right apex lateral and medial) % of pattern 4: Less than 5% of the tumor. Discussed treatment options to include active surveillance, radiation therapy and surgery. Will refer to radiation oncology for second opinion. Review of chart: 01/15/24--Negro Mason is a very pleasant 73-year-old male patient of Dr. Sandoval who was accompanied by significant other at today's office visit. He has a past medical history of prostatism, hypercholesteremia, microscopic hematuria, and elevated PSA. He presents to the office today for a follow up. Of note, patient was seen approximately 6 weeks ago as a new patient for an elevated PSA at which time redraw of PSA and retroperitoneal ultrasound was ordered for further assessment evaluation. These results were reviewed with the patient today. Bilateral kidneys with no calculi, lesions, and or hydro nephrosis. The bladder is well distended. Bilateral ureteral jets are demonstrated. Pre void bladder volume is approximately 185 mL. Postvoid bladder volume is approximately 60 mL. Thickened wall trabeculated urinary bladder. Prostate volume approximately 38 mL. PSAs are as follows: 12/07--3.4 10/09--4.3 01/10-- 4.9 PSA free 10% Reviewed urine cytology from last office visit 12/10: Negative for high-grade urothelial carcinoma PFSH Medical History Prostatism Encounter for screening for depression Colon cancer screening Pure hypercholesterolemia, unspecified Pain in left shoulder Prostatism Microscopic hematuria Increased prostate specific antigen (PSA) velocity Adenoma Encounter for general adult medical examination without abnormal findings Review of Systems Const All systems reviewed & are unremarkable except as noted in HPI and below Reports no additional complaints Eyes Reports no additional complaints ENT Reports no additional complaints Card Reports no additional complaints Resp Reports no additional complaints GI Reports no additional complaints Reports as per HPI Musc Reports no additional complaints Skin/Breast Reports system reviewed and no additional complaints, except as documented Neuro Reports no additional complaints Psych Reports no additional complaints Endo Reports no additional complaints Neal/Lymph Reports no additional complaints Aller/Immun Reports no additional complaints Results Reviewed Results Reviewed: Collected: 03/16/24 Location: [facility] Received: 03/16/24 Diagnosis A: Left base lateral: Prostatic adenocarcinoma, Hiram score 3+3=6 (grade group 1) involving 20% of the tissue. B: Left base medial: Atypical small acinar proliferation. C: Left mid lateral: Benign prostatic tissue; no malignancy identified. D: Left mid medial: Benign prostatic tissue; no malignancy identified. E: Left apex lateral: Benign prostatic tissue; no malignancy identified. F: Left apex medial: Benign prostatic tissue; no malignancy identified. G: Right base lateral: Prostatic adenocarcinoma, [place] score 3+4=7 (grade group 2) involving 20% of the tissue. H: Right base medial: Prostatic adenocarcinoma, [place] score 3+4=7 (grade group 2) involving 30% of the tissue. I: Right mid lateral: Prostatic adenocarcinoma, [place] score 3+3=6 (grade group 1) involving 50% of the tissue. J: Right mid medial: Prostatic adenocarcinoma, Hiram score 3+3=6 (grade group 1) involving 50% of the tissue. K: Right apex lateral: Prostatic adenocarcinoma, [place] score 3+3=6 (grade group 1) involving 40% of the tissue. L: Right apex medial: Prostatic adenocarcinoma, [place] score 3+3=6 (grade group 1) involving 10% of the tissue. Data synopsis - Prostate needle biopsy Histologic type: Adenocarcinoma, acinar type Histologic grade: Hiram score: 3+4=7 (right base lateral, right base medial) 3+3=6 (left base lateral, right mid lateral and medial, right apex lateral and medial) % of pattern 4: Less than 5% of the tumor Assessment & Plan Assessment & Plan (1) Elevated PSA: Code(s): R97.20 - Elevated prostate specific antigen [PSA] Category: Medical (2) Family history of prostate cancer: Code(s): Z80.42 - Family history of malignant neoplasm of prostate Category: Medical (3) Adenocarcinoma of prostate: Code(s): C61 - Malignant neoplasm of prostate Category: Medical Plan Refer to radiation oncology for second opinion Patient Instructions: The patient had an opportunity to ask questions regarding treatment plan. The patient expressed understanding and agreement with the above treatment plan. The patient is aware they should contact our office by phone for worsening of their current condition or the appearance of new symptoms. Compliance is encouraged with any medications and followup testing that is ordered. It is a privilege to be allowed the opportunity to participate in the urologic care of your patient. If you have any questions or concerns regarding treatment for the above conditions please do not hesitate to contact me. The office telephone contact is [phone]. This note is constructed in part using voice recognition software. While every effort has been made to ensure accuracy plant operations vice president errors may have been included. Yours sincerely, Toni Simpson MD Coding Level of Care Code Est Pt Level 4 (51628) Diagnoses Elevated PSA R97.20 Family history of prostate cancer Z80.42 Adenocarcinoma of prostate C61
== END 2024-03-29 13:03 | disposition home or self-care (01) ==
PROVIDERS: PCP Internal Medicine; Visit Provider Urology
DX: R97.20 Elevated prostate specific antigen [PSA] (principal); Z80.42 Family history of malignant neoplasm of prostate; C61 Malignant neoplasm of prostate
CPT/HCPCS: 99214

== ENCOUNTER → 2024-03-29 11:34 | Outpatient (BNVA) | payer MEDICARE, SELFPAY | PROVIDERS: PCP Internal Medicine; Visit Provider Urology | DX: R97.20 Elevated prostate specific antigen [PSA] (principal); C61 Malignant neoplasm of prostate; Z80.42 Family history of malignant neoplasm of prostate | CPT/HCPCS: 99212 ==

== ENCOUNTER → 2024-04-19 07:53 | Outpatient (BNVA) | payer SELFPAY | PROVIDERS: PCP Internal Medicine; Visit Provider Internal Medicine | DX: Z02.79 Encounter for issue of other medical certificate (principal) ==

== ENCOUNTER 2024-07-28 06:30 | Day surgery (SDC) | payer MEDICARE, SELFPAY ==
[2024-06-24 08:48] VITALS: BMI 25.1
[2024-07-26 14:15] VITALS: BMI 25.1
--- NOTE | 2024-07-27 11:04 | HO.ANESPROP2 ---
Documented by User: Jennyfer Ford NP 07/27/24 11:05 HPI - Anesthesia Eval Consult details Narrative: 73yo M for Colonoscopy Hx facial radiation d/t sinus cancer PMFSH Active Problems Active Problems: All Active Problems Adenocarcinoma of prostate (Acute) Family history of prostate cancer (Acute) Bladder trabeculation (Acute) Bladder wall thickening (Acute) Elevated PSA (Acute) Lower urinary tract symptoms (Acute) Nocturia (Acute) Past Medical History Medical History Hx of radiation therapy Cancer of nasal cavity and sinus Rheumatoid arthritis Encounter for screening for depression Colon cancer screening Pure hypercholesterolemia, unspecified Pain in left shoulder Prostatism Microscopic hematuria Increased prostate specific antigen (PSA) velocity Adenoma Surgical History Surgical History H/O colonoscopy Hx of sinus surgery Hx of left inguinal hernia repair Hx of prostate biopsy Social History Social History Household Members: Spouse Patient Tobacco Use Status: Former Tobacco user Tobacco use type: Cigarette Use of substances other than those prescribed or required for medical reasons: No Are you DNR?: No Advance Directives: No Advance Directives Information Provided: Yes Meds Allergies Allergy/AdvReac Type Severity Reaction Status Date / Time No Known Allergies Allergy Verified 03/29/24 12:13 Home Medications ?Medication ?Instructions ?Recorded ?Confirmed ?Last Taken ?Type ibuprofen 800 mg tablet 800 mg PO BID PRN pain 12/01/23 07/28/24 Unknown History hydroxychloroquine 200 mg tablet 200 mg PO BID 01/15/24 07/28/24 Unknown History tamsulosin 0.4 mg capsule 0.4 mg PO BID 06/24/24 07/28/24 Unknown History multivitamin 1 tab PO DAILY 07/26/24 07/28/24 Unknown History Exam Height,Weight and Vital Signs: Height 5 ft 10 in Weight 79.379 kg Assessment and Plan Assessment Anesthesia Assessment: Chart Reviewed Documented by User: Glenna Mcdaniels MD 07/28/24 07:36 HPI - Anesthesia Eval Consult details Narrative: 73yo M for Colonoscopy Hx facial radiation d/t sinus cancer- surgery for nasal cancer [facility] Past Medical History Medical History Hx of radiation therapy Cancer of nasal cavity and sinus Rheumatoid arthritis Encounter for screening for depression Colon cancer screening Pure hypercholesterolemia, unspecified Pain in left shoulder Prostatism Microscopic hematuria Increased prostate specific antigen (PSA) velocity Adenoma Family History Family history of problems with anesthesia: No Surgical History Surgical History H/O colonoscopy Hx of sinus surgery Hx of left inguinal hernia repair Hx of prostate biopsy History of Problems with Anesthesia: No Social History Social History Household Members: Spouse Patient Tobacco Use Status: Former Tobacco user Tobacco use type: Cigarette Use of substances other than those prescribed or required for medical reasons: No Are you DNR?: No Advance Directives: No Advance Directives Information Provided: Yes Meds Allergies Allergy/AdvReac Type Severity Reaction Status Date / Time No Known Allergies Allergy Verified 03/29/24 12:13 Home Medications ?Medication ?Instructions ?Recorded ?Confirmed ?Last Taken ?Type ibuprofen 800 mg tablet 800 mg PO BID PRN pain 12/01/23 07/28/24 Unknown History hydroxychloroquine 200 mg tablet 200 mg PO BID 01/15/24 07/28/24 Unknown History tamsulosin 0.4 mg capsule 0.4 mg PO BID 06/24/24 07/28/24 Unknown History multivitamin 1 tab PO DAILY 07/26/24 07/28/24 Unknown History Exam Height,Weight and Vital Signs: Height 5 ft 10 in Weight 79.379 kg Vital Signs Temp Pulse Resp BP Pulse Ox O2 Del Method 07/28/24 07:14 97.6 F 69 16 117/64 98 Room Air Airway Mallampati Class: II TM Dist: >3cm Neck ROM: Full Denture: Upper Loose/Missing/Broken Teeth: Yes (Missing some teeth ) Heart: RRR Lungs: CTAB Assessment and Plan Assessment Anesthesia Assessment: Anesthesia Plan Discussed and Chart Reviewed Final Anesthetic Review Family History of Problems with Anesthesia: No History of Problems with Anesthesia: No NPO: Yes ASA Class: II Final Preanesthetic Review: No Changes in Pt Med Stat, Meds/Allgs Chart Reviewed, Consent Obtained/Reviewed and Anes Risks/Benef Reviewed Patient Risk: Low Procedure Risk: Low Assessment/Block/Sedation in SS: Assess/Block/Sedation-SS Anesthetic Plan Anesthetic Plan: TIVA Disposition: Standard PACU
[2024-07-28 07:14] VITALS: BP 117/64; PULSE 69; RESP 16; TEMP 36.4; O2SAT 98
[2024-07-28] MEDS: Lactated Ringers 1,000 ML 100 ML IVCONT (07:24)
[2024-07-28 08:46] VITALS: BP 110/69; PULSE 73; RESP 16; TEMP 36.1; O2SAT 99
--- NOTE | 2024-07-28 08:49 | P.BOP_ITS ---
Brief Operative Note Date of Service: 07/28/24 Pre-op diagnosis: Screening Post-op diagnosis: other (Colon polyp, AVM's) Procedure: Colonoscopy to the cecum and TI with bx/removal of polyp Surgeon: Negro Ashton MD Anesthesia: MAC Was an [facility] Agent used for this Procedure?: No Estimated blood loss (mL): 2.0 Pathology: other (A. Polyp at 40cm) Condition: stable Disposition: PACU
[2024-07-28 09:01] VITALS: BP 110/78; PULSE 77; RESP 16; TEMP 36.1; O2SAT 100
[2024-07-28 09:16] VITALS: BP 116/75; PULSE 73; RESP 16; TEMP 36.1; O2SAT 99
--- NOTE | 2024-07-28 09:47 | OP_ITS ---
DATE OF SERVICE: 07/28/2024 SURGEON: Negro Ashton MD INDICATIONS: The patient presents for evaluation of colorectal cancer screening and personal history of tubular adenoma of the colon. Full consent has been obtained from him for this, including risks of bleeding and perforation. PREOPERATIVE DIAGNOSIS: POSTOPERATIVE DIAGNOSIS: PROCEDURE PERFORMED: Colonoscopy to the cecum and terminal ileum. ESTIMATED BLOOD LOSS: COMPLICATIONS: ANESTHESIA: Monitored anesthesia care. ASSISTANTS: SPECIMENS: PREOPERATIVE DIAGNOSES: Personal history of colon polyps and colorectal cancer screening. POSTOPERATIVE DIAGNOSES: Personal history of colon polyps and colorectal cancer screening, small colon polyp, nonbleeding angiodysplasias, diverticulosis, and internal hemorrhoids. DESCRIPTION OF PROCEDURE: The patient was placed in the left lateral decubitus position. The digital rectal exam revealed no abnormalities. The Olympus video pediatric colonoscope was entered into the rectum and advanced easily to the cecum. Once in the cecum, I did identify a cecal pouch with appendiceal orifice and a normal-appearing ileocecal valve. The terminal ileum was cannulated and appeared normal. Scope was withdrawn back in the colon. The entire cecum and ileocecal valve were well visualized and appeared normal other than multiple nonbleeding angiodysplasias. The scope was then slowly withdrawn assessing all mucosal surfaces carefully. Preparation was excellent. There were also several nonbleeding angiodysplasias in the proximal ascending colon. I did not visualize any other angiodysplasias nor colitis. At 40 cm, was a flat, approximately 3 or 4 mm polyp, which was biopsied and completely removed with cold biopsy forceps. There was a moderate amount of sigmoid diverticulosis. I did not visualize any other polyps. In the rectum, scope was retroflexed, visualizing internal hemorrhoids, but no other pathology. The rectal mucosa appeared normal. The scope was straightened and withdrawn from the patient. He tolerated the procedure well and was returned to the recovery area in stable condition. IMPRESSION: 1. Small colon polyp. 2. Angiodysplasias. 3. Diverticulosis. 4. Internal hemorrhoids. PLAN: The results of biopsy will be checked. Given his age and his otherwise minimal findings, I do not think we needs any further screening colonoscopies in the future. He will otherwise see me on a p.r.n. basis. MD BRODY Conn/CIERA / [id number]
== END 2024-07-28 09:50 | disposition home or self-care (01) ==
PROVIDERS: PCP Internal Medicine; Visit Provider Internal Medicine
PROC: 0DJD8ZZ Inspection of Lower Intestinal Tract, Via Natural or Artificial Opening Endoscopic (ICD-10-PCS; CPT 45378; principal; 2024-07-28 07:30)
DX: Z12.11 Encounter for screening for malignant neoplasm of colon (principal); Z86.010 Personal history of colon polyps; Z83.719 Family history of colon polyps, unspecified; D12.5 Benign neoplasm of sigmoid colon; K55.20 Angiodysplasia of colon without hemorrhage; K57.30 Diverticulosis of large intestine without perforation or abscess without bleeding; K64.8 Other hemorrhoids; M06.9 Rheumatoid arthritis, unspecified; Z85.22 Personal history of malignant neoplasm of nasal cavities, middle ear, and accessory sinuses; Z87.891 Personal history of nicotine dependence; Z79.1 Long term (current) use of non-steroidal anti-inflammatories (NSAID); Z79.899 Other long term (current) drug therapy; Z98.890 Other specified postprocedural states
CPT/HCPCS: 45380; 88305; J2704

== ENCOUNTER 2024-10-21 10:41 | Outpatient (REF) | payer SELFPAY ==
[2024-10-21 10:46] LABS: MANUAL DIFF FLAG NO
[2024-10-21 12:09] LABS: Appearance Urine Clear; Color Urine Yellow; Glucose Urine UA Negative (Negative); Leukocyte Esterase Urine Negative (Negative); Nitrite Urine Negative (Negative); Urine Blood Negative (Negative); Urine Ketones Negative (Negative); Urine Protein Negative (Neg-Trace)
[2024-10-21 12:10] LABS: Basophils Absolute Auto 0.1 X10*3/uL (0.0-0.2); Basophils Percent Auto 1.4 % (0-2); Eosinophils Absolute Auto 0.4 X10*3/uL (0.0-0.4); Eosinophils Percent Auto 6.1 % (0-4); Hemoglobin 15.2 g/dl (14.0-18.0); Imm Gran Abs Auto 0.01 X10*3/uL (0.00-0.03); Imm Gran Pct Auto 0.2 % (0.0-0.4); Mean Corpuscular HGB Conc 33.8 g/dl (31.0-36.0); Mean Corpuscular Hemoglobin 31.1 pg (27.0-33.0); Mean Platelet Volume 11.9 fL (9.4-12.4); Monocytes Absolute Auto 0.6 X10*3/uL (0.1-1.2); Monocytes Percent Auto 10.1 % (2-11); NRBC Pct Auto 0.5 /100WBC (0.0-0.2); Neutrophils Absolute Auto 2.8 x10*3/uL (2.0-8.3); Neutrophils Percent Auto 48.2 % (45-73); Platelet Count 166 X10*3/uL (160-400); Red Blood Count 4.89 X10*6/uL (4.60-5.80); White Blood Count 5.7 X10*3/uL (4.8-10.8)
[2024-10-21 12:14] LABS: Bacteria Urine None Seen (None Seen); Hyaline Casts Urine 0-2 /LPF (0-2); RBC Urine 0-2 /HPF (0-2); Squamous Epithelial Cell Urine 0-2 /HPF (0-2); WBC Urine 0-5 /HPF (0-5)
[2024-10-21 12:42] LABS: Alanine Aminotransferase 30 U/L (0-40); Albumin Level 4.1 g/dL (3.5-5.0); Alkaline Phosphatase 98 U/L (39-117); Anion Gap 10 (12-20); Aspartate Amino Transferase 30 U/L (5-37); Bilirubin Total 0.8 mg/dL (0.0-1.0); Blood Urea Nitrogen 22 mg/dL (9-16); Calcium 9.7 mg/dL (8.4-10.2); Carbon Dioxide 31 mmol/L (22-29); Chloride 103 mmol/L (96-108); Cholesterol 190 mg/dL (<200); Estimated Glomerular Filt Rate > 60; Glucose Random 86 mg/dL (60-115); HDL Cholesterol 57 mg/dL (>40); LDL Cholesterol Calculated 122 mg/dL (<100); Potassium 4.1 mmol/L (3.3-5.1); Sodium 140 mmol/L (135-145); Total Protein 7.1 g/dL (6.5-8.0); Triglycerides 59 mg/dL (<150)
[2024-10-21 12:51] LABS: PSA,Total (Free>4and<10) 4.49 ng/mL (0.00-4.00)
[2024-10-22 12:53] LABS: Free Prostate Spec Ag 0.5 ng/mL; Percent Free Prostate Spec Ag 12 % (calc) (>25); Prostate Specific Ag Total 4.3 ng/mL (< OR = 4.0)
== END 2024-10-21 10:42 | disposition home or self-care (01) ==
LOC: HO.LNP 10:41
PROVIDERS: Visit Provider Internal Medicine
DX: Z00.00 Encounter for general adult medical examination without abnormal findings (principal); Z12.5 Encounter for screening for malignant neoplasm of prostate; R79.9 Abnormal finding of blood chemistry, unspecified; N40.0 Benign prostatic hyperplasia without lower urinary tract symptoms; E78.00 Pure hypercholesterolemia, unspecified
CPT/HCPCS: 80053; 80061; 81001; 84153; 84154; 85025

== ENCOUNTER 2025-10-25 10:23 | Outpatient (REF) | payer MEDICARE, SELFPAY ==
[2025-10-25 10:28] LABS: MANUAL DIFF FLAG NO
[2025-10-25 10:48] LABS: Appearance Urine Clear; Glucose Urine UA Negative (Negative); PH 7.0 (5.0-9.0); Specific Gravity - Urine 1.020 (1.005-1.025)
[2025-10-25 10:57] LABS: Hematocrit 36.7 % (42.0-52.0); Imm Gran Abs Auto 0.01 X10*3/uL (0.00-0.03); Imm Gran Pct Auto 0.2 % (0.0-0.4); Lymphocytes Absolute Auto 1.1 X10*3/uL (1.2-4.9); Mean Corpuscular HGB Conc 32.2 g/dl (31.0-36.0); Mean Corpuscular Hemoglobin 28.9 pg (27.0-33.0); Mean Corpuscular Volume 89.7 fL (80.0-98.0); NRBC Abs Auto 0.000 X10*3/uL (0.0-0.012); NRBC Pct Auto 0.0 /100WBC (0.0-0.2); Platelet Count 212 X10*3/uL (160-400); Red Blood Count 4.09 X10*6/uL (4.60-5.80); White Blood Count 4.1 X10*3/uL (4.8-10.8)
[2025-10-25 10:59] LABS: Hemoglobin 11.8 g/dl (14.0-18.0)
[2025-10-25 11:12] LABS: Alanine Aminotransferase 24 U/L (0-40); Albumin Level 4.2 g/dL (3.5-5.0); Alkaline Phosphatase 97 U/L (39-117); Anion Gap 11 (12-20); Aspartate Amino Transferase 26 U/L (5-37); Blood Urea Nitrogen 21 mg/dL (9-16); Calcium 9.7 mg/dL (8.4-10.2); Carbon Dioxide 28 mmol/L (22-29); Chloride 106 mmol/L (96-108); Cholesterol 158 mg/dL (<200); Estimated Glomerular Filt Rate > 60; HDL Cholesterol 54 mg/dL (>40); Potassium 4.0 mmol/L (3.3-5.1); Sodium 141 mmol/L (135-145); Total Protein 6.5 g/dL (6.5-8.0); Triglycerides 51 mg/dL (<150)
[2025-10-25 11:28] LABS: PSA,Total (Free>4and<10) 1.08 ng/mL (0.00-4.00)
== END 2025-10-25 10:24 | disposition home or self-care (01) ==
LOC: HO.LNP 10:23
PROVIDERS: Visit Provider Internal Medicine
DX: Z00.00 Encounter for general adult medical examination without abnormal findings (principal); Z12.5 Encounter for screening for malignant neoplasm of prostate; Z13.6 Encounter for screening for cardiovascular disorders; N40.0 Benign prostatic hyperplasia without lower urinary tract symptoms; E78.00 Pure hypercholesterolemia, unspecified; R79.9 Abnormal finding of blood chemistry, unspecified
CPT/HCPCS: 80053; 80061; 81001; 84153; 85025